=== PATIENT | female | born 1990 | race Caucasian/White ===

== ENCOUNTER 2021-02-04 11:26 | Emergency (ER) | payer OTHER ==
[~2021-02-04] VITALS: Ht 157.5 cm; Wt 56.7 kg
[2021-02-04] MEDS ORDERED: TESSALON PERLE100 M1 PO (12:45)
[2021-02-04 12:56] VITALS: BP 135/51
== END 2021-02-04 12:57 | disposition home or self-care (01) ==
LOC: M.ERS 11:26
DX: B34.9 Viral infection, unspecified (principal); Z20.822 Contact with and (suspected) exposure to COVID-19